=== PATIENT | male | born 1965 | race Caucasian/White ===

== ENCOUNTER → 2019-08-05 | Outpatient (CLI) | payer OTHER | LOC: COL.RAD 11:06 | DX: Z02.71 Encounter for disability determination (principal); M19.041 Primary osteoarthritis, right hand; M19.031 Primary osteoarthritis, right wrist ==

== ENCOUNTER 2023-12-04 11:23 | Emergency (ER) | payer MEDICARE ==
[~2023-12-04] VITALS: Ht 185.4 cm; Wt 90.9 kg
[2023-12-04 11:26] VITALS: BP 206/103; TEMP 98
[2023-12-04 12:45] VITALS: PULSE 78
== END 2023-12-04 12:45 | disposition home or self-care (01) ==
LOC: COL.ER 11:23
DX: Z71.1 Person with feared health complaint in whom no diagnosis is made (principal)